=== PATIENT | female | born 1985 | race Caucasian/White ===

== ENCOUNTER 2017-06-22 13:45 | Emergency (ER) | payer OTHER ==
[~2017-06-22] VITALS: Ht 170.2 cm; Wt 152.0 kg
[2017-06-22] MEDS ORDERED: LISI-604 PO (13:54)
[2017-06-22] MEDS ORDERED: LORAZEPAM 2MG/ML CPJ IM ONE (16:00)
[2017-06-22 16:38] LABS: BASOPHILS % 0.5 % (0.0-2.0); EOSINOPHILS % 1.7 % (0.0-5.0); HEMATOCRIT. 33.7 % (36.0-48.0); HEMOGLOBIN. 10.5 g/dL (12.0-16.0); LYMPHOCYTES % 21.4 % (20.0-50.0); MEAN CORPUSCULAR HEMOGLOBIN 23.4 pg (28.0-32.0); MEAN PLATELET VOLUME 7.4 fl (7.4-10.4); MONOCYTES % 5.3 % (2.0-8.0); NEUTROPHILS % 71.1 % (40.0-76.0); PLATELET 320 x1000/uL (130-400); RED BLOOD CELL COUNT 4.49 mill/uL (4.2-5.4)
[2017-06-22 16:44] LABS: CHLORIDE 106 mEq/L (98-107)
[2017-06-22 16:52] LABS: HCG SCREEN NEGATIVE
[2017-06-22] MEDS ORDERED: ACETAMINOPHEN 325MG TABLET PO ONE (18:00)
[2017-06-22 21:10] VITALS: BP 167/101
[2017-06-22] MEDS ORDERED: LORAZEPAM 1MG TABLET PO ONE (21:30)
== END 2017-06-22 22:08 | disposition home or self-care (01) ==
LOC: ER 14:34
DX: F41.9 Anxiety disorder, unspecified (principal); I10 Essential (primary) hypertension; R51 Headache; R42 Dizziness and giddiness
CPT/HCPCS: 36415; 71045; 80053; 81025; 84484; 84703; 85025; 93005; 96372; 99285; J2060; Z7610